=== PATIENT | male | born 2000 | race Caucasian/White ===

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

== ENCOUNTER 2023-07-04 21:31 | Outpatient (CLI) | payer MEDICAID | END 2023-07-04 23:59 | disposition critical access hospital (66) | LOC: EMS 21:31 | DX: R41.82 Altered mental status, unspecified (principal); R73.9 Hyperglycemia, unspecified | CPT/HCPCS: A0425; A0427; A0999 ==

== ENCOUNTER 2023-07-04 21:49 | Inpatient (IN) | payer MEDICAID, OTHER ==
--- NOTE | 2023-07-04 22:01 | ED Physician Documentation ---
PD HPI ALTERED MENTAL STATUS - Stated complaint Stated Complaint: UNRESPONSIVE - Chief complaint Chief Complaint: Neuro - History obtained from History obtained from: EMS - Additional information Additional information: GABRIELLA. HPI from EMS. Patient unable to contribute to HPI or provide ROS due to severely altered mental status. 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 They last saw the patient appearing and acting normal at approximately 7 PM tonight. EMS asked the parents if the patient has any history of drug use and, per EMS, they seem to not provide a straight-forward answer but generally were indicating they were not aware of any history of illicit drug use. EMS was told that the pat ient takes 1 medication, but EMS does not recall what the medication was nor what it was for. Patient was given 2 mg Narcan en route with slight improvement in his level of responsiveness, which is still significantly abnormal on arrival. The patient makes occasional purposeful gaze, mostly looking around room very slowly. He is non-verbal. He does follow simple commands albeit slowly. Fingerstick blood sugar by EMS was "high" (usually indicative of over 500). Review of Systems Unable to obtain: AMS PD PAST MEDICAL HISTORY - Past Medical History Past Medical History: No - Present Medications Home Medications: Ambulatory Orders Medication Instructions Recorded Confirmed estradioL [Estradiol] 2 mg PO BID 07/05/23 07/05/23 - Allergies Allergies/Adverse Reactions: Allergies Allergy/AdvReac Type Severity Reaction Status Date / Time No Known Drug Allergies Allergy Verified 07/04/23 23:21 - Social History Does the pt smoke?: No Smoking Status: Never smoker Results - Vitals Vitals: Vital Signs - 24 hr 07/04/23 07/04/23 07/04/23 21:58 22:01 22:31 Temperature 35.5 C L Heart Rate 117 H 118 H 108 H Respiratory 36 H 28 H 26 H Rate Blood Pressure 129/84 H 129/84 H 126/88 H O2 Saturation 100 99 100 07/04/23 07/05/23 07/05/23 23:30 00:00 00:30 Temperature Heart Rate 91 88 89 Respiratory 22 22 18 Rate Blood Pressure 123/84 H 118/73 115/82 H O2 Saturation 100 100 100 07/05/23 07/05/23 01:00 01:30 Temperature Heart Rate 93 89 Respiratory 16 16 Rate Blood Pressure 110/68 109/68 O2 Saturation 100 100 Oxygen O2 Source Room air - EKG (time done) No standard instances EKG releavant findings:: EKG personally interpreted by author of this note. Relevant findings are: Rate: Rate (enter#) (89) Rhythm: NSR [place]: Normal Intervals: Normal [place], Prolonged QT, Other (borderline (NS)IVCD) Ischemia: Normal ST segments - Labs Labs: Laboratory Tests 07/04/23 07/04/23 07/04/23 22:00 22:00 22:00 WBC 28.8 H RBC 5.72 Hgb 15.8 Hct 51.6 MCV 90.2 MCH 27.6 MCHC 30.6 L RDW 14.5 Plt Count 243 MPV 9.7 Neut # (Auto) Not Reportable Lymph # (Auto) Not Reportable Trinity # (Auto) Not Reportable Eos # (Auto) Not Reportable Baso # (Auto) Not Reportable Absolute Nucleated RBC Not Reportable Total Counted 100 Band Neuts % (Manual) 10 Abnorm Lymph % (Manual) 0 Metamyelocytes % 1 H Promyelocytes % 1 H Nucleated RBC % Not Reportable Neutrophils # (Manual) 25.9 H Lymphocytes # (Manual) 0.3 L Monocytes # (Manual) 2.0 H Eosinophils # (Manual) 0.0 Basophils # (Manual) 0.0 Differential Comment MANUAL DIFFERENTIAL WBC Morphology 1+ TOXIC GRANULATION Platelet Estimate NORMAL (130-450,000) Platelet Morphology NORMAL APPEARANCE RBC Morph Micro Appear NORMAL APPEARANCE VBG pH 6.692 L* VBG pCO2 23.5 L VBG pO2 51.8 H VBG HCO3 2.8 L VBG Total CO2 3.5 L VBG O2 Saturation 80.8 H VBG Base Excess -34.1 L Sodium 133 L Potassium 3.0 L Chloride 107 Carbon Dioxide 3 L* Anion Gap 23.0 H BUN 27 H Creatinine 1.6 H Estimated GFR (MDRD) 53 L Glucose 1047 H* Lactic Acid Calcium 9.2 Total Bilirubin 0.4 AST 6 L ALT 8 L Alkaline Phosphatase 71 Total Protein 7.2 Albumin 4.5 Globulin 2.7 Albumin/Globulin Ratio 1.7 Lipase 249 H Urine Color Urine Clarity Urine pH Ur Specific Galva Urine Protein Urine Glucose (UA) Urine Ketones Urine Occult Blood Urine Nitrite Urine Bilirubin Urine Urobilinogen Ur Leukocyte Esterase Urine RBC Urine WBC Ur Squamous Epith Cells Urine Bacteria Ur Microscopic Review Urine Culture Comments Urine Opiates Screen Ur Buprenorphine Scrn Ur Oxycodone Screen Urine Methadone Screen Ur Barbiturates Screen Ur Tricyclics Screen Ur Phencyclidine Scrn Ur Amphetamine Screen U Methamphetamines Scrn U Benzodiazepines Scrn Urine Cocaine Screen U Cannabinoids Screen Ur Drug Screen Comment Serum Ketones SMALL H 07/04/23 07/04/23 07/05/23 22:00 23:42 01:05 WBC RBC Hgb Hct MCV MCH MCHC RDW Plt Count MPV Neut # (Auto) Lymph # (Auto) Trinity # (Auto) Eos # (Auto) Baso # (Auto) Absolute Nucleated RBC Total Counted Band Neuts % (Manual) Abnorm Lymph % (Manual) Metamyelocytes % Promyelocytes % Nucleated RBC % Neutrophils # (Manual) Lymphocytes # (Manual) Monocytes # (Manual) Eosinophils # (Manual) Basophils # (Manual) Differential Comment WBC Morphology Platelet Estimate Platelet Morphology RBC Morph Micro Appear VBG pH VBG pCO2 VBG pO2 VBG HCO3 VBG Total CO2 VBG O2 Saturation VBG Base Excess Sodium 141 Potassium 2.0 L* Chloride 117 H Carbon Dioxide 2 L* Anion Gap 22.0 H BUN 24 H Creatinine 1.5 H Estimated GFR (MDRD) 57 L Glucose 811 H* Lactic Acid 2.5 H Calcium 8.5 Total Bilirubin AST ALT Alkaline Phosphatase Total Protein Albumin Globulin Albumin/Globulin Ratio Lipase Urine Color COLORLESS Urine Clarity CLEAR Urine pH 5.5 Ur Specific Galva 1.010 Urine Protein TRACE Urine Glucose (UA) >=1000 H Urine Ketones >=80 H Urine Occult Blood MODERATE H Urine Nitrite NEGATIVE Urine Bilirubin NEGATIVE Urine Urobilinogen 0.2 (NORMAL) Ur Leukocyte Esterase NEGATIVE Urine RBC 0-5 Urine WBC 0-3 Ur Squamous Epith Cells RARE Squamous Urine Bacteria None Seen Ur Microscopic Review INDICATED Urine Culture Comments NOT INDICATED Urine Opiates Screen NEGATIVE Ur Buprenorphine Scrn NEGATIVE Ur Oxycodone Screen NEGATIVE Urine Methadone Screen NEGATIVE Ur Barbiturates Screen NEGATIVE Ur Tricyclics Screen NEGATIVE Ur Phencyclidine Scrn NEGATIVE Ur Amphetamine Screen NEGATIVE U Methamphetamines Scrn NEGATIVE U Benzodiazepines Scrn NEGATIVE Urine Cocaine Screen NEGATIVE U Cannabinoids Screen NEGATIVE Ur Drug Screen Comment CUTOFF CONC BELOW: Serum Ketones - Rads (name of study) CTH Relevant Findings:: Prelim report reviewed, See rad report PD Medical Decision Making - ED course Complexity details: reviewed results, re-evaluated patient, considered differential, d/w family ED course: Patient cannot provide HPI/ROS due to severe AMS. Both mother and father, who spent time in the ED at patient's bedside, state they have no knowledge of the patient being diabetic. Patient's father shows me a picture of the only medication he is aware that the patient takes which is estradiol. Both parents tell me the patient is not a drinker (alcohol). Patient has small ketones (serum), blood sugar of 1049, CO2 of 3, potassium of 3, pH (VBG) 6.7. DKA protocol is initiated. Unfortunately, on recheck, while his blood sugar improves to 811, his potassium dropped to 2.0 and repeat VBG shows same pH. Additionally, his repeat carbon dioxide level is 2. Thus, his insulin is stopped and I have ordered 10 mEq potassium chloride IV x 2 doses. He will most certainly require more potassium than these 2 doses, but these can be ordered and labs followed in the inpatient setting at this point. The first sound telehealth physician I spoke to requested CT of the chest, abdomen, and pelvis with IV contrast. The reason for this was to look for potential source of infection, given the very abnormal blood tests in the setting of no known diagnosis of diabetes. A different telehealth physician then wrote admission orders. Amongst these orders are sodium bicarb; additionally, I do not see orders for potassium. Another set of blood tests show blood sugar is 797. Unfortunately, the potassium level has dropped further and is now 1.8. His CO2 is 3, chloride 120. Ammonia level, which was ordered by the hospitalist, it is 100.7. I put in a re-consult so as to discuss the abnormalities on blood tests and what medications have been ordered and what is required (such as potassium supplementation). The telehealth physician was made aware of the abnormal blood tests (at the time of that conversation, I had not yet received the latest potassium level of 1.8, but I did make her aware of the previous test such as the potassium of 2.0). I also discussed that the's insulin is not currently running as this will lower the potassium level, that I have ordered to doses of 10 mill equivalents potassium chloride. I also mentioned that the sodium bicarb would likely be detrimental, as this would also lower his potassium level (this has to be weighed against the potential benefit of improving the pH). Lastly, I informed the telehealth physician that I have told the medical research tech to not perform the CTs at this time and to wait until they are told that the patient is appropriate/safe/stable for such studies. I do not feel it is appropriate to send the patient for the studies with such a low potassium level. Patient was in the ED for 5 hours. During this time, he remains severely altered regarding his mental status. At no time did he become awake and alert. In fact, his mental status declined during his stay. He continued to exhibit Kussmal respirations. Departure - Departure Disposition: [facility] DC/Xfer Clinical Impression: DKA (diabetic ketoacidosis), Hypokalemia Condition: Serious Discharge Date/Time: 07/05/23 04:57
[2023-07-04 22:07] LABS: BASOPHILS % (AUTO) 0.2 %; EOSINOPHILS % (AUTO) 0.1 %; HCT - HEMATOCRIT 51.6 % (42.0-52.0); HGB - HEMOGLOBIN 15.8 g/dL (14.0-18.0); LYMPHOCYTES % (AUTO) 5.7 %; MEAN CORPUSCULAR HEMOGLOBIN 27.6 pg (27.0-31.0); MEAN CORPUSCULAR HGB CONC 30.6 g/dL (32.0-36.0); MEAN CORPUSCULAR VOLUME 90.2 fL (80.0-94.0); MEAN PLATELET VOLUME 9.7 fL (7.4-11.4); MONOCYTES % (AUTO) 4.5 %; PLT - PLATELET COUNT 243 10^3/uL (130-450); RED BLOOD COUNT 5.72 10^6/uL (4.70-6.10); RED CELL DISTRIBUTION WIDTH 14.5 % (12.0-15.0); WHITE BLOOD COUNT 28.8 x10^3/uL (4.8-10.8)
[2023-07-04 22:09] LABS: VBG BASE EXCESS -34.1 mmol/L (-2 - +2); VBG HCO3 2.8 mmol/L (23-28); VBG OXYGEN SATURATION 80.8 % (60-80); VBG PCO2 23.5 mmHg (41-51); VBG PO2 51.8 mmHg (25-47); VBG TOTAL CO2 3.5 mmol/L (24-29)
[2023-07-04 22:10] LABS: VBG PH 6.692 (7.31-7.41)
[2023-07-04 22:17] LABS: ABNORMAL LYMPHS % (MANUAL) 0 %
[2023-07-04 22:19] LABS: LIPASE 249 U/L (11-82)
[2023-07-04 22:27] LABS: KETONES, SERUM (ACETEST) SMALL (NEGATIVE)
[2023-07-04] MEDS: SODIUM CHLORIDE 0.9% 1,000 ML IV SCH (22:28)
[2023-07-04 22:30] LABS: ALBUMIN 4.5 g/dL (3.2-5.5); ALBUMIN/GLOBULIN RATIO 1.7 (1.0-2.2); ALKALINE PHOSPHATASE 71 IU/L (42-121); ALT ALANINE AMINOTRANSFERASE 8 IU/L (10-60); AST ASPARTATE AMINOTRANSFERASE 6 IU/L (10-42); BILIRUBIN,TOTAL 0.4 mg/dL (0.2-1.0); BUN - BLOOD UREA NITROGEN 27 mg/dL (6-20); CALCIUM 9.2 mg/dL (8.5-10.3); CARBON DIOXIDE - CO2 3 mmol/L (21-32); CHLORIDE 107 mmol/L (101-111); CREATININE 1.6 mg/dL (0.6-1.3); GFR - MDRD 53 (>89); GLUCOSE 1047 mg/dL (74-104); SODIUM 133 mmol/L (135-145); TOTAL PROTEIN 7.2 g/dL (6.4-8.9)
[2023-07-04] MEDS: INSULIN REGULAR IN 0.9 % NS 100 UNIT/100 ML BAG IV STA (22:32)
[2023-07-04] MEDS: INSULIN REGULAR HUMAN 300 UNIT/3 ML VIAL IVP STA (22:40)
[2023-07-04 22:41] LABS: BAND NEUTROPHILS % (MANUAL) 10 %; LYMPHOCYTES # (MANUAL) 0.3 10^3/uL (1.5-3.5); LYMPHOCYTES % (MANUAL) 1 %; METAMYELOCYTES % (MANUAL) 1 %; NEUTROPHILS # (MANUAL) 25.9 10^3/uL (1.5-6.6); PROMYELOCYTES % (MANUAL) 1 %
[2023-07-04 22:42] LABS: DIFFERENTIAL COMMENT MANUAL DIFFERENTIAL; PLATELET ESTIMATE, MANUAL NORMAL (130-450,000) (NORMAL); PLATELET MORPHOLOGY NORMAL APPEARANCE (NORMAL); RBC MORPHOLOGY (MULTIPLE) NORMAL APPEARANCE (NORMAL)
[2023-07-04 22:43] LABS: WBC MORPHOLOGY (MULTIPLE) 1+ TOXIC GRANULATION (NORMAL)
--- NOTE | 2023-07-04 23:15 | CT Report ---
PROCEDURE: Head WO INDICATIONS: AMS TECHNIQUE: Noncontrast 4.5 mm thick angled axial sections acquired from the foramen magnum to the vertex. For r adiation dose reduction, the following was used: automated exposure control, adjustment of mA and/or kV according to patient size. COMPARISON: None. FINDINGS: Image quality: Excellent. CSF spaces: Basal cisterns are patent. No extra-axial fluid collections. Ventricles are normal in size and shape. Brain: No midline shift. No intracranial masses or hemorrhage. [place]-white matter interface is norm al. Skull and face: Calvarium and visualized facial bones are intact, without suspicious lesions. Sinuses: Visualized sinuses and mastoids are clear. IMPRESSION: No acute intracranial pathology. Reviewed by: Carole Gee MD on 07/04/2023 11:13 PM [facility] Approved by: Carole Gee MD on 07/04/2023 11:13 PM [facility] Station ID: [id number]
[2023-07-05 00:30] LABS: CALCIUM 8.5 mg/dL (8.5-10.3); CREATININE 1.5 mg/dL (0.6-1.3)
[2023-07-05] MEDS: POTASSIUM CHLOR 10 MEQ/100 ML 10 MEQ/100 ML BAG IV STA ×2 (01:02→02:52)
[2023-07-05 01:23] LABS: BILIRUBIN,URINE NEGATIVE (NEGATIVE); GLUCOSE, URINE (UA) >=1000 mg/dL (NEGATIVE); KETONES,URINE (UA) >=80 mg/dL (NEGATIVE); LEUKOCYTE ESTERASE, URINE NEGATIVE (NEGATIVE); NITRITE,URINE NEGATIVE (NEGATIVE); OCCULT BLOOD,URINE MODERATE (NEGATIVE); PH,URINE 5.5 PH (5.0-7.5); PROTEIN,URINE TRACE mg/dL (NEGATIVE); UROBILINOGEN,URINE 0.2 (NORMAL) E.U./dL (NORMAL)
[2023-07-05 01:38] LABS: CLARITY,URINE CLEAR (CLEAR)
[2023-07-05 01:41] LABS: BACTERIA,URINE None Seen /HPF (None Seen); RBC,URINE 0-5 /HPF (0-5); SQUAMOUS EPITHELIAL CELL,UR RARE Squamous (<= Few); WBC,URINE 0-3 /HPF (0-3)
[2023-07-05 01:42] LABS: AMPHETAMINE SCREEN,URINE NEGATIVE (NEGATIVE); BARBITURATE SCREEN,UR NEGATIVE (NEGATIVE); BENZODIAZEPINES SCREEN, URINE NEGATIVE (NEGATIVE); BUPRENORPHINE SCREEN, URINE NEGATIVE (NEGATIVE); COCAINE SCREEN URINE NEGATIVE (NEGATIVE); METHADONE SCREEN, URINE NEGATIVE (NEGATIVE); METHAMPHETAMINES SCREEN, URINE NEGATIVE (NEGATIVE); OPIATE SCREEN, URINE NEGATIVE (NEGATIVE); OXYCODONE SCREEN, URINE NEGATIVE (NEGATIVE); THC CANNABINOID SCREEN, URINE NEGATIVE (NEGATIVE); TRICYCLIC ANTIDEPRESSANT,URINE NEGATIVE (NEGATIVE)
[2023-07-05] MEDS ORDERED: SODIUM CHLORIDE FLUSH 0.9% 10 ML SYRINGE IVP PRN (01:42)
[2023-07-05] MEDS ORDERED: ACETAMINOPHEN 650 MG SUPP PR PRN (01:51)
[2023-07-05 02:14] LABS: VBG PCO2 18.6 mmHg (41-51)
[2023-07-05 02:15] LABS: VBG BASE EXCESS -34.3 mmol/L (-2 - +2); VBG HCO3 2.2 mmol/L (23-28); VBG OXYGEN SATURATION 93.4 % (60-80); VBG TOTAL CO2 2.8 mmol/L (24-29)
[2023-07-05 02:16] LABS: VBG PH 6.694 (7.31-7.41)
[2023-07-05 02:18] LABS: MAGNESIUM 2.3 mg/dL (1.7-2.3)
--- NOTE | 2023-07-05 02:19 | HISTORY & PHYSICAL EXAMINATION ---
Chief Complaint - Chief Complaint Chief Complaint: ams, weakness, confusion History of Present Illness - History of Present Illness HPI Comment/Other: details obtained from ed provider and pt's dad - pt with worsening weakness, confusion, ams over last 2-3 days. dad states that pt had flu-like symptoms and was requested juice and sugary beverages, but was not eating much. per dad, pt is introverted and usually stays in his room much of the day. he is currently unemployed but was otherwise a straight-A student in school/college. no drug usage noted or reported per dad, and pt does not have many friends. dad states he went to check on his son and found him on the floor in his room last night, and when he tried to ask his son what happened, there was significant confusion and shaking, and thus he was brought to hospital. no reported or known medical history, including diabetes. Meds/Allgy - Home Medications Home Medications: Ambulatory Orders Medication Instructions Recorded Confirmed estradioL [Estradiol] 2 mg PO BID 07/05/23 07/05/23 - Allergies Allergies/Adverse Reactions: Allergies Allergy/AdvReac Type Severity Reaction Status Date / Time No Known Drug Allergies Allergy Verified 07/04/23 23:21 Review of Systems - Other Findings Other Findings: unable to obtain d/t ams Exam - Vital Signs Vital Signs: Vital Signs x48h Temp Pulse Resp BP Pulse Ox 07/05/23 02:00 87 16 102/62 100 07/05/23 01:30 89 16 109/68 100 07/05/23 01:00 93 16 110/68 100 07/05/23 00:30 89 18 115/82 H 100 07/05/23 00:00 88 22 118/73 100 07/04/23 23:30 91 22 123/84 H 100 07/04/23 22:31 108 H 26 H 126/88 H 100 07/04/23 22:01 118 H 28 H 129/84 H 99 07/04/23 21:58 35.5 C L 117 H 36 H 129/84 H 100 - Physical Exam Comments/Other: gen - resting in bed, awake, oriented to self/internal stimuli at this time; father at bedside heent - eomi, nc/at, dry mucosae heart - per ed charting lungs - per ed charting abd - per ed charting msk - no acute trauma / abnl noted Conclusion/Plan - Lab Results Fish Bones: 07/04/23 22:00 07/04/23 23:42 - Other Other Results/Comments: pt with - - toxic, metabolic encephalopathy ct head NEG likely in setting of dka (below) check ammonia levels neuro checks check mri brain - dka likely contributory to above new diagnosis of t2dm, check a1c, tsh, lipids initial glucose > 1000, trending slowly down insulin drip, ivf, monitor electrolytes - hypokalemia in setting of above replete, check mag - roberto carlos in setting of above continue IVF check renal sono - elevated lipase in setting of above check ct chest/abd/pelvis - leukocytosis / SIRS unclear source related to above (?) --> acute stress reaction, dehydration, etc check ct chest/abd/pelvis check ua, blood cultures, resp viral panel start empiric vanc + zosyn f/u labs, replete electrolytes further orders per clinical course
[2023-07-05 02:31] LABS: CALCIUM 9.1 mg/dL (8.5-10.3); CHOLESTEROL 178 mg/dL; CREATININE 1.6 mg/dL (0.6-1.3); HDL CHOLESTEROL 44 mg/dL; LDL CHOLESTEROL,CALCULATED 90 mg/dL; POTASSIUM 1.8 mmol/L (3.5-4.5); TRIGLYCERIDES 219 mg/dL (48-352); VLDL CHOLESTEROL 44 mg/dL
[2023-07-05 02:33] LABS: THYROID STIMULATING HORMONE 0.19 uIU/mL (0.34-5.60)
[2023-07-05] MEDS: INSULIN REGULAR IN 0.9 % NS 100 UNIT/100 ML BAG IV SCH (02:50)
[2023-07-05] MEDS: SODIUM BICARBONATE 100 MEQ in DEXTROSE 5% 1,000 ML IV SCH (02:50)
[2023-07-05 03:25] LABS: B. PARAPERTUSSIS- RESP PCR PAN NOT DETECTED; B. PERTUSSIS- RESP PCR PANEL NOT DETECTED; C. PNEUMONIAE- RESP PCR PANEL NOT DETECTED; CORONAVIRUS 229E-RESP PCR NOT DETECTED; CORONAVIRUS HKU1-RESP PCR NOT DETECTED; CORONAVIRUS NL63-RESP PCR NOT DETECTED; CORONAVIRUS OC43-RESP PCR NOT DETECTED; HUMAN METAPNEUMOVIRUS NOT DETECTED; INFLUENZA A- RESP PCR PANEL NOT DETECTED; INFLUENZA B - RESP PCR PANEL NOT DETECTED; M. PNEUMONIAE- RESP PCR PANEL NOT DETECTED; PARAINFLUENZA VIRUS 1 NOT DETECTED; PARAINFLUENZA VIRUS 2 NOT DETECTED; PARAINFLUENZA VIRUS 3 NOT DETECTED; PARAINFLUENZA VIRUS 4 NOT DETECTED; RHINOVIRUS/ENTEROVIRUS NOT DETECTED; RSV- RESP PCR PANEL NOT DETECTED; SARS-CoV-2 -RESP PCR PANEL NOT DETECTED
--- NOTE | 2023-07-05 04:08 | ANESTHESIA PROCEDURE NOTE ---
Anesth Central Line Template - Central Line Central Line Preparation: Consent Obtained (from patient's father. patient un able to consent due to AMS), Time out completed, Ultrasound used, Sterile prep and drape Central line location: Right IJ Central line type: Triple lumen Central line catheter tip site resides: Superior vena cava (SVC) Central line aftercare: Chlorhexidine disc placed, Placement confirmed, No pneumothorax, No complications, Pt tolerated well Other Info/Details: Right neck prepped with chlorohexadine. Full sterile gown, mask, drape and gloves utilized. Right neck localized with 3ml of 1% lidocaine. Right IJ imaged using US and accessed with 18G needle. Wire advanced with ease and verified by US to be in Rt. IJ. After dilation, a 20 fr triple lumen catheter was inserted over the wire and wire was removed. All 3 ports aspirate blood and flush with ease. Line sutured in place. Tip resides in the distal SVC per CXR.
[2023-07-05 04:50] LABS: BASOPHILS % (AUTO) 0.1 %; EOSINOPHILS % (AUTO) 0.1 %; HCT - HEMATOCRIT 47.4 % (42.0-52.0); HGB - HEMOGLOBIN 15.4 g/dL (14.0-18.0); LYMPHOCYTES % (AUTO) 6.4 %; MEAN CORPUSCULAR HEMOGLOBIN 28.2 pg (27.0-31.0); MEAN CORPUSCULAR HGB CONC 32.5 g/dL (32.0-36.0); MEAN CORPUSCULAR VOLUME 86.7 fL (80.0-94.0); MEAN PLATELET VOLUME 9.7 fL (7.4-11.4); MONOCYTES % (AUTO) 6.4 %; NEUTROPHILS % (AUTO) 75.3 %; PLT - PLATELET COUNT 139 10^3/uL (130-450); RED BLOOD COUNT 5.47 10^6/uL (4.70-6.10); RED CELL DISTRIBUTION WIDTH 13.7 % (12.0-15.0)
[2023-07-05] MEDS: SODIUM CHLORIDE 0.45% 1,000 ML IV SCH (05:00)
[2023-07-05 05:05] LABS: MAGNESIUM 2.4 mg/dL (1.7-2.3); PHOSPHORUS 1.4 mg/dL (2.5-5.0)
[2023-07-05 05:17] LABS: WHITE BLOOD COUNT 37.9 x10^3/uL (4.8-10.8)
[2023-07-05 05:18] LABS: ABNORMAL LYMPHS % (MANUAL) 0 %; ALBUMIN/GLOBULIN RATIO 1.7 (1.0-2.2); BILIRUBIN,TOTAL 0.4 mg/dL (0.2-1.0); CALCIUM 9.2 mg/dL (8.5-10.3); CREATININE 1.6 mg/dL (0.6-1.3); TOTAL PROTEIN 6.4 g/dL (6.4-8.9)
[2023-07-05] MEDS: VANCOMYCIN INJ 1.5 GM in SODIUM CHLORIDE 0.9% 500 ML IV SCH (05:30)
[2023-07-05] MEDS: PIPERACILLIN/TAZOBACTAM 3.375 GM in SODIUM CHLORIDE 0.9% MINIBAG 100 ML IV SCH (05:30)
[2023-07-05 05:52] LABS: BAND NEUTROPHILS % (MANUAL) 16 %; DIFFERENTIAL COMMENT MANUAL DIFFERENTIAL; EOSINOPHILS # (MANUAL) 0.4 10^3/uL (0-0.7); LYMPHOCYTES # (MANUAL) 4.9 10^3/uL (1.5-3.5); LYMPHOCYTES % (MANUAL) 13 %; METAMYELOCYTES % (MANUAL) 3 %; MONOCYTES # (MANUAL) 1.5 10^3/uL (0.0-1.0); MYELOCYTES % (MANUAL) 5 %; PLATELET ESTIMATE, MANUAL NORMAL (130-450,000) (NORMAL); RBC MORPHOLOGY (MULTIPLE) NORMAL APPEARANCE (NORMAL)
[2023-07-05 07:20] LABS: VBG PH 6.78 (7.31-7.41)
[2023-07-05 07:21] LABS: CALCIUM, IONIZED 1.54 mmol/L (1.15-1.33)
[2023-07-05 07:32] LABS: MAGNESIUM 2.3 mg/dL (1.7-2.3); PHOSPHORUS 1.3 mg/dL (2.5-5.0)
[2023-07-05 07:50] LABS: CALCIUM 9.1 mg/dL (8.5-10.3); CREATININE 1.7 mg/dL (0.6-1.3); POTASSIUM 2.1 mmol/L (3.5-4.5)
--- NOTE | 2023-07-05 08:31 | XRAY Report ---
PROCEDURE: Chest for Line Placement INDICATIONS: central line placement TECHNIQUE: One view of the chest was acquired. COMPARISON: None. FINDINGS: Surgical changes and devices: Right internal jugular central venous catheter tip is projecting the e xpected location of SVC.. Lungs and pleura: No pleural effusions or pneumothorax. Lungs are clear. Mediastinum: Mediastinal contours appear normal. Heart size is normal. Bones and chest wall: No suspicious bony lesions. Overlying soft tissues appear unremarkable. IMPRESSION: No acute cardiopulmonary process. Right internal jugular central venous catheter projecting in the ex pected location of SVC. Findings are concordant with preliminary interpretation provided by [facility]. Reviewed by: Alejandro Bolivar MD on 07/05/2023 8:29 AM PST Approved by: Alejandro Bolivar MD on 07/05/2023 8:29 AM PST Station ID: [id number]
[2023-07-05] MEDS: POTASSIUM PHOSPHATE 21 MMOL in SODIUM CHLORIDE 0.9% 250 ML IV ONE (08:40)
--- NOTE | 2023-07-05 08:42 | PROVIDER PROGRESS NOTE ---
Hospitalist Cross-cover Note - Cross-Cover Note Cross-Cover Note: Dayshift Hospitalist note: Patient is on Estradiol, we assume that he is taking this for transitioning to female gender Temperature 35.5 at admission, down to 34.1 and he was put on a Bear hugger Blood pressure is dropping from normal down to 90 systolic, heart rate increasing to 107 in sinus tachycardia The patient is obtunded, responds to sternal rub with wincing. Lungs are clear He is not hypoxic but is becoming tachypneic I ordered Spinal tap, LP was just done by Anesthesia Multiple lab abnormalities noted: Glucose greater than 750, moderate serum ketones, pH 6.9, lactic acid 2.5 has normalized to 0.4, white blood count was 22 last night now 38 this morning, Potassium 2.0 has now improved to 2.4 with K supplements No insulin drip started yet because of severe hypokalemia, no bicarb drip started yet but 1 amp of bicarb has been given Creat was abn at 1.5 and is worsening in several hours to 1.8. Patient ordered sq Heparin for DVT prophylaxis. he is on no ulcer prophylaxis Impression: AMS of unknown cause DKA New onset DM REILLY Septic shock with Hypotehermia, Leukocytosis, AMS with source unclear Acidosis, it ia out of proportion to his serum ketones and serum lactic acid level therefore suspect that he may have ingested a compound with production of acidosis such as methylene glycol (Antifreeze), or other agent Ammonia level 100 with normal LFTs Patient in Critical Condition Plan: Saline 1L bolus ordered on top of 0.5 NS iv running at 125 cc/hr, and Levophed to be started A STAT Echo was ordered Continue with empiric iv antibx Pip-Tazo and Vanco Continue with aggressive potassium replacements Begin IV bicarb drip Begin IV insulin drip Follow serum labs every 1 hour Obtain urine sediment to check for oxalate crystals Add Pepcid IV BID for stress ulcer prophylaxis CT abd and chest ordered but are on hold until pt stabilizes We cannot get a serum osmolality here, it is a send out lab (since we are a Critical [facility] H[facility]). We cannot get a serum ethylene glycol level here, it is a send out lab. Therefore, I will start to work to have this patient transferred to a center with higher level of care Social work was requested to speak to family regarding home situation. There is no one at bedside By 1045 a.m. CRITICAL CARE TIME SPENT: 60 min At approx 1200 noon, BP dropped to MAP of 55 New lab results were all reviewed. Plan: IV Levophed drip ordered to start With glucose 675 and K2.4, IV insulin ordered to start IV bicarb ordered to start after that I spoke to transfer center at who does not have a bed currently but one will open. I then spoke to Transfer RN at [facility] who took the intake data and will call back with an loin trimmer. I spoke to transfer center at [facility] and an loin trimmer was on the line. The patient was accepted to be transferred via airlift to [facility] in [place]. The phone calls that came again from and [facility] were thanked and told that their services were no longer needed. By 1245 a.m. TOTAL CRITICAL CARE TIME SPENT: 100 min At approximately 1500, the air ambulance crew came to flower picker the patient. His Echo had been done (I reviewed it) and it showed a normal LVEF. I examined the patient at the the time when air ambulance present, and he had an unchanged clinical exam. Both his parents were in the room. I updated then that he was in critical condition and that we suspected possible ingestion of antifreeze or other acid. They stated that the patient had been groggy and only wanted chicken soup for the past 48 hours. The mother said that the patient had taken Motrin and maybe took excessive amounts of Motrin because he was so groggy the past 48, and may have taken too much. When the pt was barely mumbling answers, he was told that they will be taking him to the ER, and that he has 20 minutes to get dressed. They waited 20 minutes, went back to see him and he was on the floor and obtunded. An ambulance was called. Glucose level at the scene was very high. We discussed whether the patient was possibly depressed lately and both parents did not know. They stated that he had not left the house in the last 72 hours (to potentially go to get antifreeze). The father said he would check his antifreeze supply back home to be sure it was not missing. I asked the father to update [facility] ICU with what he found. By 1500 TOTAL CRITICAL CARE TIME SPENT: 120 min.
[2023-07-05 08:50] LABS: KETONES, SERUM (ACETEST) MODERATE (NEGATIVE)
[2023-07-05 08:55] LABS: MAGNESIUM 2.2 mg/dL (1.7-2.3)
[2023-07-05 08:58] LABS: BUN - BLOOD UREA NITROGEN 33 mg/dL (6-20); CALCIUM 8.9 mg/dL (8.5-10.3); CARBON DIOXIDE - CO2 4 mmol/L (21-32); CHLORIDE 124 mmol/L (101-111); CREATININE 1.8 mg/dL (0.6-1.3); GFR - MDRD 47 (>89); GLUCOSE 739 mg/dL (74-104); POTASSIUM 2.2 mmol/L (3.5-4.5); SODIUM 145 mmol/L (135-145)
[2023-07-05] MEDS: SODIUM CHLORIDE FLUSH 0.9% 10 ML SYRINGE IVP SCH (08:59)
--- NOTE | 2023-07-05 08:59 | PHARMACY PROGRESS NOTE ---
- Best Possible Medication History Admit Date and Time: 07/05/23 0142 Processed by: Nursing Patient Interview: Completed Secondary Source(s): Insurance records As the person ultimately responsible for medication therapy, providers are able to order a medication from an existing home medication list in [facility] via the "Reconcile Routine" prior to Confirmation of that medication by field support technician. Such practice is discouraged except when the physician, in their clinical judgment, deems that a medical need exists for a medication without regard to previous use.
[2023-07-05] MEDS: SODIUM BICARBONATE ABBOJECT 50 MEQ/50 ML SYRINGE IVP SCH (09:18)
[2023-07-05] MEDS: HEPARIN 5,000 UNIT/ML VIAL SUBQ SCH (09:19)
--- NOTE | 2023-07-05 09:24 | ANESTHESIA PROCEDURE NOTE ---
Diagnosis: DKA, decreased LOC, increased WBC Procedure: Lumbar puncture with sampling Consent for Procedure(s) Verified and Reviewed: No Height and Weight: Height 5 ft 10 in Weight (kg) 67 kg Body Mass Index 21.9 Vital Signs: Temp Pulse Resp BP Pulse Ox O2 Flow Rate 36.2 C L 101 H 21 91/49 L 97 07/05/23 08:00 07/05/23 08:00 07/05/23 08:00 07/05/23 08:00 07/05/23 08:00 Allergies No Known Drug Allergies Allergy (Verified 07/04/23 23:21) Requesting Provider: Landry Location: ICU 2304 ASA classification: 4-Incapacitating disease Is this case an emergency?: Yes Anes. Monitoring and Equipment: Non-invasive BP, Pulse oximetery, Sterile prep and drape Anes. Procedure Start Time: 09:00 Anes. Procedure Stop Time: 09:07 Procedure Notes: Pt unresponsive to all stimuli but procedure was explained to patient prior to start. Unable to obtain consent. Turned to RLD with RN assist Sterile prep/drape after L4-5 identified. Lido 1% 3cc at site. 22 ga spinal needle to +CSF. Containers filled to 3cc 1-4. Band-aid to site, no blood, after needle out. Pt left in RLD with supportive pillows and bare hugger placed. No change in VS before, during, or after procedure.
[2023-07-05 09:43] LABS: BILIRUBIN,URINE NEGATIVE (NEGATIVE); GLUCOSE, URINE (UA) >=1000 mg/dL (NEGATIVE); KETONES,URINE (UA) 40 mg/dL (NEGATIVE); LEUKOCYTE ESTERASE, URINE NEGATIVE (NEGATIVE); NITRITE,URINE NEGATIVE (NEGATIVE); OCCULT BLOOD,URINE MODERATE (NEGATIVE); PH,URINE 5.5 PH (5.0-7.5); PROTEIN,URINE NEGATIVE (NEGATIVE); UROBILINOGEN,URINE 0.2 (NORMAL) E.U./dL (NORMAL)
[2023-07-05 09:46] LABS: CLARITY,URINE CLEAR (CLEAR)
[2023-07-05 09:50] LABS: TOTAL PROTEIN,CSF 91 mg/dL (15-45)
[2023-07-05 09:55] LABS: CSF - GLUCOSE 559 mg/dL (45-70)
[2023-07-05 09:55] LABS: HCG UR QUAL NEGATIVE
--- NOTE | 2023-07-05 10:01 | XRAY Report ---
PROCEDURE: Chest for Line Placement INDICATIONS: NG tube placement TECHNIQUE: One view of the chest was acquired. COMPARISON: None. FINDINGS: Surgical changes and devices: NGT is present, tip of which is in the gastric lumen. Right-sided cent ral venous catheter is present, tip of which projects over the mid SVC. Lungs and pleura: No pleural effusions or pneumothorax. Lungs are clear. Mediastinum: Mediastinal contours appear normal. Heart size is normal. Bones and chest wall: No suspicious bony lesions. Overlying soft tissues appear unremarkable. IMPRESSION: No acute cardiopulmonary process. Reviewed by: Jolynn Fox MD on 07/05/2023 10:00 AM [facility] Approved by: Jolynn Fox MD on 07/05/2023 10:00 AM [facility] Station ID: [id number]
[2023-07-05] MEDS: SODIUM CHLORIDE 0.9% 1,000 ML IV ONE (10:04)
[2023-07-05 10:07] LABS: CSF TUBE # CSF TUBE# 3
[2023-07-05 10:08] LABS: CLARITY,CSF CLEAR (CLEAR); COLOR,CSF COLORLESS (COLORLESS); CSF XANTHOCHROMIA ABSENT (ABSENT); RED BLOOD CELL,CSF 159 /mm^3 (0-1); WHITE BLOOD CELL,CSF 1 /mm^3 (0-5)
[2023-07-05 10:11] LABS: MAGNESIUM 2.1 mg/dL (1.7-2.3)
[2023-07-05 10:19] LABS: KETONES, SERUM (ACETEST) SMALL (NEGATIVE)
[2023-07-05 10:21] LABS: GLUCOSE 707 mg/dL (74-104)
[2023-07-05 10:22] LABS: BUN - BLOOD UREA NITROGEN 33 mg/dL (6-20); CALCIUM 8.8 mg/dL (8.5-10.3); CARBON DIOXIDE - CO2 5 mmol/L (21-32); CHLORIDE 125 mmol/L (101-111); CREATININE 1.8 mg/dL (0.6-1.3); GFR - MDRD 47 (>89); POTASSIUM 2.4 mmol/L (3.5-4.5); SODIUM 149 mmol/L (135-145)
[2023-07-05 10:23] LABS: RBC,URINE 0-5 /HPF (0-5); WBC,URINE 0-3 /HPF (0-3)
[2023-07-05 10:24] LABS: BACTERIA,URINE Few /HPF (None Seen); SQUAMOUS EPITHELIAL CELL,UR NONE SEEN (<= Few)
[2023-07-05 10:27] LABS: CRYSTALS,URINE None Seen /LPF
[2023-07-05] MEDS: NOREPINEPHRINE/0.9 % NS 8 MG/250 ML BAG IV SCH (10:50)
[2023-07-05] MEDS ORDERED: POTASSIUM CHLOR 20 MEQ/100 ML 20 MEQ/100 ML BAG IV ONE ×2 (10:55)
[2023-07-05] MEDS: POTASSIUM CHLOR 20 MEQ/100 ML 20 MEQ/100 ML BAG IV SCH (11:00)
[2023-07-05 11:58] LABS: KETONES, SERUM (ACETEST) SMALL (NEGATIVE)
[2023-07-05] MEDS: FAMOTIDINE 20 MG/2 ML VIAL IVP SCH (12:18)
[2023-07-05 12:21] LABS: BUN - BLOOD UREA NITROGEN 33 mg/dL (6-20); CALCIUM 8.6 mg/dL (8.5-10.3); CARBON DIOXIDE - CO2 4 mmol/L (21-32); CHLORIDE 127 mmol/L (101-111); GFR - MDRD 41 (>89); GLUCOSE 657 mg/dL (74-104); POTASSIUM 2.5 mmol/L (3.5-4.5); SODIUM 150 mmol/L (135-145)
[2023-07-05 12:36] LABS: VBG BASE EXCESS -29.5 mmol/L (-2 - +2); VBG HCO3 3.4 mmol/L (23-28); VBG PCO2 19.9 mmHg (41-51); VBG PO2 102.1 mmHg (25-47)
[2023-07-05 12:37] LABS: VBG PH 6.855 (7.31-7.41)
[2023-07-05] MEDS: POTASSIUM CHLORIDE 20 MEQ/15 ML UDC NG SCH (13:06)
[2023-07-05] MEDS: POTASSIUM CHLORIDE 10 MEQ CAPSULE PO SCH (13:43)
[2023-07-05 13:52] LABS: KETONES, SERUM (ACETEST) SMALL (NEGATIVE)
[2023-07-05 13:57] LABS: ESTIMATED AVERAGE GLUCOSE 306 mg/dL (70-100); HEMOGLOBIN A1c% 12.3 % (4.27-6.07)
[2023-07-05] MEDS ORDERED: POTASSIUM CHLOR 20 MEQ/100 ML 20 MEQ/100 ML BAG IV SCH (14:01)
[2023-07-05 14:03] LABS: GLUCOSE 595 mg/dL (74-104)
[2023-07-05] MEDS ORDERED: SODIUM BICARBONATE 8.4% 50 MEQ/50 ML VIAL ONE (14:03)
--- NOTE | 2023-07-05 14:06 | Discharge Plan ---
Discharge Plan Problem Reviewed?: Yes Disposition: 02 Transfer Acute Care Hosp Condition: Critical No Smoking: If you smoke, Please STOP! Call for help.
[2023-07-05 14:10] VITALS: BP 83/46; O2SAT 97
--- NOTE | 2023-07-05 15:34 | DISCHARGE SUMMARY ---
Discharge Summary Admit Date: 07/05/23 Discharge Date: 07/05/23 Discharging Provider: Dr Gisselle Alatorre Primary Care Provider: LANE Diaz Code Status: Attempt Resuscitation Condition at Discharge: Critical Discharge Disposition: 02 Transfer Acute Care Hosp [facility] - HPI History of Present Illness: Telemedicine Hospitalist H&P: Details obtained from ed provider and pt's dad, 23 y/o pt with worsening weakness, confusion, ams over last 2-3 days. dad states that pt had flu-like symptoms and was requested juice and sugary beverages, but was not eating much. per dad, pt is introverted and usually stays in his room much of the day. he is currently unemployed but was otherwise a straight-A student in school/college. no drug usage noted or reported per dad, and pt does not have many friends. dad states he went to check on his son and found him on the floor in his room last night, and when he tried to ask his son what happened, there was significant confusion and shaking, and thus he was brought to hospital. no reported or known medical history, including diabetes. Dr Kailash Alatorre's obtained Hx: Both his parents arrived and I updated them that he was in critical condition a nd that we suspected possible ingestion. They stated that the patient had been groggy and only wanted chicken soup for the past 48 hours. The mother said that the patient had taken Motrin and maybe took excessive amounts of Motrin because he was so groggy and may have been confused. They said when the pt was barely mumbling answers, he was told that they will be taking him to the ER, and that "he has 20 minutes to get dressed". They waited 20 minutes, went back to see him and he was on the floor and obtunded. An ambulance was called. Glucose level at the scene was very high. I questioned whether the patient was possibly depressed lately and both parents did not know. They stated that he had not left the house in the last 72 hours (to get something from outside the house). - HOSPITAL COURSE Hospital Course: Septic shock Pt had Hypothermia, Temperature 35.5 at admission, down to 34.1 and he was put on a Bear hugger. Leukocytosis:white blood count was 22 at adm>> 38 by morning, AMS with source unclear. He was started on empiric iv Vanco and iv Pip-Tazo. Lactic acid was 2.5 and normalized to 0.4 after receiving aggressive crystaloid iv hydration. No source of infection found on CXR or U/A. BP dropped to MAP <55 and Levophed was added. A chest CT and abd CT were ordered but not done until BP stabilized. An Echo was done that showed normal LV and RV systolic function. Metabolic Acidosis He receved 1 amp Bicarb and iv fluids. His pH of 6.8 was out of proportion to his serum ketones and serum lactic acid level therefore suspect that he may have ingested a compound with production of acidosis such as methylene glycol (Antifreeze), or other agent. He was started on Bicarb drip when K was 2.5. Ordered urine sediment to check for oxalate crystals, which was not done. We cannot get a serum osmolality here, it is a send out lab, and we cannot get a serum ethylene glycol level here, it is a send out lab. Therefore, I worked on getting him transferred to a larger facility. He was accepted to [facility] in [facility] ICU. He was transferred by air. Both his parents arrived and I updated them that he was in critical condition and that we suspected possible ingestion of antifreeze or other acid. They sta alejandro that the patient had been groggy and only wanted chicken soup for the past 48 hours. The mother said that the patient had taken Motrin and maybe took excessive amounts of Motrin because he was so groggy and confused. They said when the pt was barely mumbling answers, he was told that they will be taking him to the ER, and that "he has 20 minutes to get dressed". They waited 20 minutes, went back to see him and he was on the floor and obtunded. An ambulance was called. Glucose level at the scene was very high. We discussed whether the patient was possibly depressed lately and both parents did not know. They stated that he had not left the house in the last 72 hours (to potentially go to get antifreeze). The father said he would check his antifreeze supply back home to be sure it was not missing. I asked the father to update [facility] ICU with what he found. AMS Initially suspected from sepsis, but he did not improved with better Temp and improved BP. The patient remained obtunded, responded to sternal rub with wincing. I ordered Spinal tap done by Anesthesia. The culture was pending at time of transfer. DKA Glucose greater than 750, moderate serum ketones, pH 6.9. When K liss to 2.5, Insulin drip was started New onset DM Father has DM, but this patient had no Hx of DM. Hypokalemia Potassium 2.0 improved to 2.4 with K supplements REILLY His creat was 1.5 at adm>> 1.8 in several hours Ammonia level elevated He had normal LFTs and no Hx of alcohol use of abuse, per parents. The CT abd was ordered but not done before he was transferred out. Hypernatremia Na was 148>> 150. He was put on 0.45 NS. Patient is on Estradiol His reconciled Med list showed Estradiol 2 mg po BID, ordered by Fairda Diaz. We assumed that he is taking this for transitioning to female gender - ALLERGIES Allergies/Adverse Reactions: Allergies Allergy/AdvReac Type Severity Reaction Status Date / Time No Known Drug Allergies Allergy Verified 07/04/23 23:21 - MEDICATIONS Home Medications: Ambulatory Orders Medication Instructions Recorded Confirmed estradioL [Estradiol] 2 mg PO BID 07/05/23 07/05/23 - PHYSICAL EXAM AT DISCHARGE General Appearance: positive: Other (Comatose) Eyes Bilateral: positive: No lid inflammation, Other (Thin with sunken eyes and cheeks) ENT: positive: Dry mucous membranes, Other (Disheveled) Neck: positive: Nml inspection Respiratory: positive: No respiratory distress Cardiovascular: positive: Regular rate & rhythm, Tachycardia Abdomen: positive: No distention Skin: positive: Warm, Pallor Extremities: positive: No pedal edema Neurologic/Psychiatric: positive: Other (Comatose) - LABS Result Diagrams: 07/05/23 04:37 07/05/23 13:30 - DIAGNOSTIC IMAGING Diagnostic Imaging Results: Final report reviewed - TIME SPENT Time Spent in Discharge (Minutes): 60
[2023-07-05 16:32] LABS: CALCIUM 8.9 mg/dL (8.5-10.3); CREATININE 1.9 mg/dL (0.6-1.3)
[2023-07-05] MEDS ORDERED: VANCOMYCIN INJ 1 GM in SODIUM CHLORIDE 0.9% 250 ML IV SCH (21:00)
[2023-07-05] MEDS ORDERED: POTASSIUM CHLORIDE 20 MEQ/15 ML UDC NG SCH (21:00)
== END 2023-07-05 15:00 | disposition short-term general hospital (02) | DRG 640 ==
LOC: EDUNIT# → ED 21:49 → ICU 07-05 01:42
PROVIDERS: ADMIT Student in an Organized Health Care Education/Training Program; ATTEND Internal Medicine
PROC: 009U3ZX Drainage of Spinal Canal, Percutaneous Approach, Diagnostic (ICD-10-PCS; principal; 2023-07-05)
PROC: 02HV33Z Insertion of Infusion Device into Superior Vena Cava, Percutaneous Approach (ICD-10-PCS; 2023-07-05)
DX: E87.20 Acidosis, unspecified (principal); E11.10 Type 2 diabetes mellitus with ketoacidosis without coma; N17.9 Acute kidney failure, unspecified; E87.0 Hyperosmolality and hypernatremia; D72.829 Elevated white blood cell count, unspecified; E87.6 Hypokalemia; R68.0 Hypothermia, not associated with low environmental temperature; R94.31 Abnormal electrocardiogram [ECG] [EKG]; Z11.52 Encounter for screening for COVID-19; Z56.0 Unemployment, unspecified; Z79.890 Hormone replacement therapy; Z83.3 Family history of diabetes mellitus
CPT/HCPCS: 36415; 80048; 80053; 80061; 80306; 80320; 81001; 81003; 81025; 81599; 82009; 82140; 82330; 82803; 82945; 82947; 83036; 83605; 83615; 83690; 83721; 83735; 83921; 83930; 83935; 84100; 84157; 84443; 85025; 85730; 87040; 87070; 87086; 87150; 87205; 87633; 87637; 89051; 89060; 93005; 93307; 96361; 96374; 99285